=== PATIENT | female | born 1935 ===

== ENCOUNTER 2019-08-17 09:39 | Outpatient (CLI) | payer OTHER ==
[~2019-08-17 09:39] MED LIST: ATACAND16 MG; NEURONTIN300 MG; PERCOCET 10-3251 TAB; TIROSINT75 MCG
== END 2019-08-17 09:57 | disposition home or self-care (01) ==
LOC: TOM 09:39
DX: M54.5 Low back pain (principal); S32.000A Wedge compression fracture of unspecified lumbar vertebra, initial encounter for closed fracture

== ENCOUNTER 2020-11-10 19:18 | Emergency (ER) | payer OTHER ==
[~2020-11-10] VITALS: Ht 157.5 cm; Wt 65.8 kg
[2020-11-10] MEDS ORDERED: ESCITALOPRA5 MG/5 ML ×2 (19:36→19:37)
[2020-11-10] MEDS ORDERED: LEVOTHYROXINE25 MC2 (19:36)
[2020-11-10] MEDS ORDERED: BUPROPION XL450 MG (19:37)
[2020-11-10] MEDS ORDERED: ZYPREXA2.5 MG (19:37)
[2020-11-10] MEDS ORDERED: NAMENDA1 EACH (19:37)
[2020-11-10] MEDS ORDERED: ARICEPT5 MG (19:38)
[2020-11-10] MEDS ORDERED: MECLIZINE HCL25 MG PO (22:27)
== END 2020-11-10 22:38 | disposition home or self-care (01) ==
LOC: ER 19:18
DX: R42 Dizziness and giddiness (principal)

== ENCOUNTER 2020-11-20 01:06 | Emergency (ER) | payer OTHER ==
[~2020-11-20] VITALS: Ht 149.9 cm; Wt 63.5 kg
[~2020-11-20 01:06] MED LIST changes: +ARICEPT5 MG; +BUPROPION XL450 MG; +ESCITALOPRA5 MG/5 ML; +LEVOTHYROXINE25 MC2; +MECLIZINE HCL25 MG PO; +NAMENDA1 EACH; +ZYPREXA2.5 MG
[2020-11-20] MEDS ORDERED: LEXAPRO5 MG (01:13)
== END 2020-11-20 02:23 | disposition home or self-care (01) ==
LOC: ER 01:06
DX: S42.291A Other displaced fracture of upper end of right humerus, initial encounter for closed fracture (principal); R07.89 Other chest pain; W18.09XA Striking against other object with subsequent fall, initial encounter; Y93.89 Activity, other specified; Y92.018 Other place in single-family (private) house as the place of occurrence of the external cause; Y99.8 Other external cause status

== ENCOUNTER → 2020-11-25 | Outpatient (CLI) | payer OTHER ==
[~2020-11-25] MED LIST changes: +LEXAPRO5 MG
== END | disposition home or self-care (01) ==
LOC: TOM 07:36
PROVIDERS: ATTEND Orthopaedic Surgery Sports Medicine
DX: S42.301A Unspecified fracture of shaft of humerus, right arm, initial encounter for closed fracture (principal); S72.001A Fracture of unspecified part of neck of right femur, initial encounter for closed fracture; S32.511A Fracture of superior rim of right pubis, initial encounter for closed fracture; S32.591A Other specified fracture of right pubis, initial encounter for closed fracture; M19.011 Primary osteoarthritis, right shoulder; M25.531 Pain in right wrist; M25.521 Pain in right elbow; M16.11 Unilateral primary osteoarthritis, right hip
CPT/HCPCS: 72195